=== PATIENT | female | born 1980 | race Asian ===

== ENCOUNTER 2019-01-17 12:20 | Emergency (ER) | payer OTHER, BC ==
[~2019-01-17] VITALS: Ht 160 cm; Wt 54.4 kg
--- NOTE | 2019-01-17 13:01 | ED Upper Extremity ---
General Chief Complaint: Upper Extremity Stated Complaint: LT MIDDLE FINGER INJ Source: patient Exam Limitations: no limitations History of Present Illness Date Seen by Provider: Jan 17, 2019 Time Seen by Provider: 12:30 Initial Comments The patient is a pleasant 38-year-old female who presents for evaluation of an injury to the left middle finger. She states that she accidentally injured it in a van door over the weekend. She is having difficulty flexing the finger due to pain. She denies any other injury to any other part of her hand or elsewhere. She is alert and oriented 4, calm, and appears to be in no distress this time. Pain/Injury Location: left 3rd finger Method of Injury: direct blow Modifying Factors: Improves With Movement (makes it worse) Allergies and Home Medications Allergies Coded Allergies: No Known Drug Allergies (Unverified , 01/17/19) Patient Home Medication List Home Medication List Reviewed: Yes Review of Systems Constitutional: no symptoms reported EENTM: no symptoms reported Respiratory: no symptoms reported Cardiovascular: no symptoms reported Gastrointestinal: no symptoms reported Genitourinary: no symptoms reported : No Musculoskeletal: other (left third finger pain) Skin: no symptoms reported Psychiatric/Neurological: No Symptoms Reported All Other Systems Reviewed Negative Unless Noted: Yes Past Ddypuct-Drvbfz-Padmws Hx Past Med/Social Hx: Reviewed Nursing Past Med/Soc Hx Patient Social History Recent Foreign Travel: No Physical Exam Vital Signs Vital Signs - First Documented 01/17/19 12:24 Temp 37.4 Pulse 86 Resp 20 B/P (MAP) 145/82 (103) Pulse Ox 100 O2 Delivery Room Air Capillary Refill : Height, Weight, BMI Height: '" Weight: lbs. oz. 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 Patient will go home with a prescription for Ultram to be used as needed for pain relief. She has been given Dr. Martinez from orthopedics to follow-up with. The patient expresses verbal understanding and agreement with the plan and is stable for discharge home at this time. Diagnostic Imaging Comments [facility], [facility]. POS [place], [place] POS NAME: NILAY RICH [facility] REC#: [id number] PT STATUS: REG ER : 1980 PHYSICIAN: BÁRBARA BA DO ADMIT DATE: 01/17/19/ER FS Draft POSDate of Exam:01/17/19 FINGER(S) INDICATION: Left middle finger pain. TIME OF EXAM: 12:21 PM FINDINGS: Three views of the left third finger were obtained. There is a fracture involving the base of the distal phalanx of the third finger. There is mild volar displacement of the distal fracture fragment. No significant angulation is seen. No definite intra-articular extension is seen. No other fractures are identified. IMPRESSION: Mildly displaced fracture involving the distal phalanx of the third finger. Dictated on workstation # [id number] Dict: 01/17/19 1254 Trans: 01/17/19 1302 TS [id number] Interpreted by: CHINTAN TAY MD Electronically signed by: Departure Impression Primary Impression: Fracture of distal phalanx of finger of left hand Disposition: 01 HOME, SELF-CARE Condition: Stable Departure-Patient Inst. Decision time for Depature: 13:12 Referrals: BROOKLYNN MARTINEZ MD Patient Instructions: Finger Fracture Add. Discharge Instructions: Follow-up with Dr. Martinez from orthopedics in the next 1-2 days. Return to the emergency Department immediately for new or worsening symptoms. Take the prescribed medicine as directed, as needed for pain. Scripts Tramadol HCl (Ultram) 50 Mg Tablet 50 MG PO Q6H PRN for PAIN-MODERATE (5-7) for 3 Days, #12 TAB Prov: BÁRBARA BA DO 01/17/19 BÁRBARA BA DO Jan 17, 2019 13:01 POS
[2019-01-17] MEDS ORDERED: TRAM-42 PO (13:15)
[2019-01-17 13:46] VITALS: BP 145/82
== END 2019-01-17 13:50 | disposition home or self-care (01) ==
LOC: ER FS 12:22
DX: S62.633A Displaced fracture of distal phalanx of left middle finger, initial encounter for closed fracture (principal); W22.8XXA Striking against or struck by other objects, initial encounter
CPT/HCPCS: 29130; 73140

== ENCOUNTER → 2022-02-23 | Day surgery (SDC) | payer BC ==
[~2022-02-23] VITALS: Ht 160 cm; Wt 55.0 kg
[2022-02-23] VITALS (7 sets, daily range): BP systolic 90–125; BP diastolic 52–82
[~2022-02-23] MED LIST: ACHD5005 PO; CATHETER FLUSH 10 ML SYR IV PRN; HOLD METFORMIN - RECEIVED CONTRAST 20 ML VIAL IV SCH; IOHEXOL 350 MG/ML 100 ML (OMNIPAQUE 350) VIAL IV ONE; KETOROLAC 30 MG/ML VIAL ONE; LIDOCAINE PF 2% 5 ML (XYLOCAINE) VIAL ONE; LIDOCAINE/EPI 1%-1:100,000 (XYLOCAINE) 30ML INJ ONE; LIDOCAINE/EPI 1%-1:100,000 (XYLOCAINE) 30ML ONE; MIDAZOLAM 2 MG/2 ML (VERSED) VIAL ONE; NS 100 ML (IVPB) BAG IV ONE; NS IV 1000 ML 1,000 ML IV SCH; ONDANSETRON 4 MG (ZOFRAN) ORAL DISSOLVE TAB ONE; ONDANSETRON 4 MG (ZOFRAN) ORAL DISSOLVE TAB PO ONE; ONDANSETRON 4 MG/2 ML (SDV) Z0FRAN IVP ONE; ONDANSETRON 4 MG/2 ML (SDV) Z0FRAN IVP PRN; ONDANSETRON 4 MG/2 ML (SDV) Z0FRAN ONE; ROCURONIUM 10 MG/ML 5 ML SYRINGE IV ONE; SEVOFLURANE (ULTANE) 15 ML INHAL SOLN ONE; SUCCINYLCHOLINE INJ 20 MG/1 ML 10 ML VIAL ONE; TRAM-42 PO; ceFAZolin INJECTION 1,000 MG IV ONE; ceFAZolin INJECTION 1,000 MG ONE; fentaNYL INJ 100 MCG/2 ML AMP IVP ONE; fentaNYL INJ 100 MCG/2 ML AMP ONE; morphine INJ 10 MG/ML 1ML (SYR OR VIAL) IVP ONE; morphine INJ 10 MG/ML 1ML (SYR OR VIAL) ONE; proPOfol 200 MG/20 ML (DIPRIVAN) VIAL IV ONE
[2022-02-23 12:47] LABS: BILIRUBIN,URINE NEGATIVE (NEGATIVE); CLARITY,URINE CLOUDY; COLOR,URINE YELLOW; GLUCOSE, URINE (UA) NEGATIVE (NEGATIVE); KETONES,URINE NEGATIVE (NEGATIVE); LEUKOCYTE ESTERASE ,URINE TRACE (NEGATIVE); NITRITE,URINE NEGATIVE (NEGATIVE); PROTEIN,URINE NEGATIVE (NEGATIVE)
[2022-02-23 12:55] LABS: BASOPHILS % (AUTO) 0 % (0-10); EOSINOPHILS # (AUTO) 0.2 10^3/uL (0.0-0.3); EOSINOPHILS % (AUTO) 1 % (0-10); HEMATOCRIT 38 % (35-52); HEMOGLOBIN 12.8 g/dL (11.5-16.0); LYMPHOCYTES # (AUTO) 1.6 10^3/uL (1.0-4.0); LYMPHOCYTES % (AUTO) 12 % (12-44); MEAN CORPUSCULAR HEMOGLOBIN 29 pg (25-34); MEAN CORPUSCULAR HGB CONC 33 g/dL (32-36); MEAN CORPUSCULAR VOLUME 86 fL (80-99); MEAN PLATELET VOLUME 10.3 fL (9.0-12.2); MONOCYTES # (AUTO) 0.8 10^3/uL (0.0-1.0); MONOCYTES % (AUTO) 6 % (0-12); NEUTROPHILS # (AUTO) 11.3 10^3/uL (1.8-7.8); NEUTROPHILS % (AUTO) 81 % (42-75); PLATELET COUNT 300 10^3/uL (130-400); WHITE BLOOD COUNT 13.9 10^3/uL (4.3-11.0)
[2022-02-23 13:05] LABS: BACTERIA,URINE FEW /HPF; RBC,URINE RARE /HPF
[2022-02-23 13:15] LABS: ALANINE AMINOTRANSFERASE 9 U/L (0-55); ALBUMIN 4.7 GM/DL (3.2-4.5); ALKALINE PHOSPHATASE 56 U/L (40-136); BILIRUBIN,TOTAL 0.3 MG/DL (0.1-1.0); BUN/CREATININE RATIO 13; CALCIUM 9.4 MG/DL (8.5-10.1); CARBON DIOXIDE 25 MMOL/L (21-32); CHLORIDE 102 MMOL/L (98-107); CREATININE SERUM 0.69 MG/DL (0.60-1.30); GFR ESTIMATED 113; GLUCOSE 84 MG/DL (70-105); LIPASE 31 U/L (8-78); POTASSIUM 3.4 MMOL/L (3.6-5.0); SODIUM 138 MMOL/L (135-145); TOTAL PROTEIN 8.5 GM/DL (6.4-8.2)
--- NOTE | 2022-02-23 13:57 | Diagnostic Imaging Report ---
PROCEDURE: CT abdomen and pelvis with contrast. TECHNIQUE: Multiple contiguous axial images were obtained through the abdomen and pelvis after administration of intravenous contrast. Auto Exposure Controls were utilized during the CT exam to meet ALARA standards for radiation dose reduction. All CT scans use one or more of the following dose optimizing techniques: automated exposure control, MA and/or KvP adjustment based on patient size and exam type or iterative reconstruction. INDICATION: Right lower quadrant pain COMPARISON: None available FINDINGS: Minimal bibasilar scarring/atelectasis. The liver and spleen are unremarkable. The adrenal glands and pancreas are unremarkable. The gallbladder is unremarkable. The kidneys are unremarkable. No aneurysmal dilatation of the abdominal aorta. The urinary bladder is unremarkable. The uterus and adnexal structures are unremarkable for age. The appendix is significantly dilated measuring 1.2 cm. Severe amount of periappendiceal fat stranding and fat stranding around the cecum is noted. Mural thickening of the cecum is also present. No focal fluid collection, though small amount of free fluid is noted within the pelvis. Lymph nodes within the right lower quadrant are increased in number though not pathologically enlarged. No free air. No acute osseous abnormality. IMPRESSION: Findings concerning for acute appendicitis without evidence of abscess formation or perforation. Associated mural thickening of the tip of the cecum is also present, which may be reactive in nature or related to additional superimposed typhlitis. Dictated by: Dictated on workstation # [id number]
--- NOTE | 2022-02-23 14:46 | ED Abdominal Pain ---
General Chief Complaint: Abdominal/GI Problems Stated Complaint: ABD PAIN Nursing Triage Note: Patient has presented to ER with mid upper abd burning in her stomach for the last 3 days. She has taken tylenol and TUMS for her symptoms. The TUMS helped some for her burning. Source of Information: Patient History of Present Illness Date Seen by Provider: Feb 23, 2022 Time Seen by Provider: 11:59 Initial Comments 41-year-old female patient complaining of intermittent episodes of epigastric pain for the last 2 months that usually happen after eating food. Patient said for the last 3 days she has more episode of epigastric pain as a sharp pain with radiation to her back. Patient also complaining of right lower quadrant pain since this morning as a gradual onset of pain that getting gradually worse and complaining of anorexia blood nausea and vomiting, urinary symptoms, , diarrhea or constipation. Patient rated her right lower quadrant pain as a 6 and epigastric pain as a 8/10. Allergies and Home Medications Allergies Coded Allergies: No Known Drug Allergies (Unverified , 01/17/19) Patient Home Medication List Home Medication List Reviewed: Yes Hydrocodone Bit/Acetaminophen (HYDROcodone/APAP 5 MG/325 MG TAB) 1 Tab Tab, 1 T AB PO Q8H PRN for PAIN-MODERATE (5-7) Prescribed by: CHIQUI CHRISTIANSON on 02/23/22 1707 Tramadol HCl (Ultram) 50 Mg Tablet, 50 MG PO Q6H PRN for PAIN-MODERATE (5-7) Prescribed by: BÁRBARA BA on 01/17/19 1315 Review of Systems Review of Systems Constitutional: see HPI EENTM: See HPI Respiratory: See HPI Cardiovascular: See HPI Gastrointestinal: See HPI Genitourinary: See HPI Musculoskeletal: see HPI Skin: see HPI Psychiatric/Neurological: See HPI Endocrine: See HPI Hematologic/Lymphatic: See HPI All Other Systems Reviewed Negative Unless Noted: Yes Past Mhojple-Tjlbip-Dkpiio Hx Patient Social History Tobacco Use?: No Use of E-Cig and/or Vaping dev: No Substance use?: No Alcohol Use?: Yes Alcohol Frequency: Once in a while Seasonal Allergies Seasonal Allergies: No Past Medical History Surgeries: No Respiratory: No Cardiac: No Neurological: No Genitourinary: No Gastrointestinal: No Musculoskeletal: No Endocrine: No HEENT: No Cancer: No Psychosocial: No Integumentary: No Physical Exam Vital Signs Vital Signs - First Documented 02/23/22 12:00 Temp 36.1 Pulse 97 Resp 16 B/P (MAP) 129/89 (102) Pulse Ox 99 O2 Delivery Room Air Capillary Refill : Height/Weight/BMI Height: '" Weight: lbs. oz. kg; 21.00 BMI Method: General Appearance: WD/WN, mild distress HEENT: PERRL/EOMI, normal ENT inspection, other (Dry oral mucosa) Neck: non-tender, full range of motion, supple, normal inspection Respiratory: chest non-tender, lungs clear, normal breath sounds, no respiratory distress, no accessory muscle use Cardiovascular: regular rate, rhythm, no edema, no gallop, no JVD Gastrointestinal: soft, rebound, tenderness (Right lower quadrant with positive McBurney sign) Extremities: normal range of motion, non-tender Back: normal inspection, no CVA tenderness Neurologic/Psychiatric: no motor/sensory deficits, normal mood/affect Skin: normal color, warm/dry Lymphatic: no adenopathy Progress/Results/Core Measures Results/Orders Lab Results Laboratory Tests Test 02/23/22 12:25 02/23/22 12:26 02/23/22 12:38 Range/Units White Blood Count 13.9 H 4.3-11.0 10^3/uL Red Blood Count 4.48 3.80-5.11 10^6/uL Hemoglobin 12.8 11.5-16.0 g/dL Hematocrit 38 35-52 % Mean Corpuscular Volume 86 80-99 fL Mean Corpuscular Hemoglobin 29 25-34 pg Mean Corpuscular Hemoglobin Concent 33 32-36 g/dL Red Cell Distribution Width 12.9 10.0-14.5 % Platelet Count 300 130-400 10^3/uL Mean Platelet Volume 10.3 9.0-12.2 fL Immature Granulocyte % (Auto) 0 % Neutrophils (%) (Auto) 81 H 42-75 % Lymphocytes (%) (Auto) 12 12-44 % Monocytes (%) (Auto) 6 0-12 % Eosinophils (%) (Auto) 1 0-10 % Basophils (%) (Auto) 0 0-10 % Neutrophils # (Auto) 11.3 H 1.8-7.8 10^3/uL Lymphocytes # (Auto) 1.6 1.0-4.0 10^3/uL Monocytes # (Auto) 0.8 0.0-1.0 10^3/uL Eosinophils # (Auto) 0.2 0.0-0.3 10^3/uL Basophils # (Auto) 0.0 0.0-0.1 10^3/uL Immature Granulocyte # (Auto) 0.1 0.0-0.1 10^3/uL Sodium Level 138 135-145 MMOL/L Potassium Level 3.4 L 3.6-5.0 MMOL/L Chloride Level 102 98-107 MMOL/L Carbon Dioxide Level 25 21-32 MMOL/L Anion Gap 11 5-14 MMOL/L Blood Urea Nitrogen 9 7-18 MG/DL Creatinine 0.69 0.60-1.30 MG/DL Estimat Glomerular Filtration Rate 113 BUN/Creatinine Ratio 13 Glucose Level 84 70-105 MG/DL Calcium Level 9.4 8.5-10.1 MG/DL Corrected Calcium 8.5-10.1 MG/DL Total Bilirubin 0.3 0.1-1.0 MG/DL Aspartate Amino Transf (AST/SGOT) 13 5-34 U/L Alanine Aminotransferase (ALT/SGPT) 9 0-55 U/L Alkaline Phosphatase 56 40-136 U/L Total Protein 8.5 H 6.4-8.2 GM/DL Albumin 4.7 H 3.2-4.5 GM/DL Lipase 31 8-78 U/L Urine Color YELLOW Urine Clarity CLOUDY Urine pH 6.0 5-9 Urine Specific [place] 1.020 1.016-1.022 Urine Protein NEGATIVE NEGATIVE Urine Glucose (UA) NEGATIVE NEGATIVE Urine Ketones NEGATIVE NEGATIVE Urine Nitrite NEGATIVE NEGATIVE Urine Bilirubin NEGATIVE NEGATIVE Urine Urobilinogen 0.2 < = 1.0 MG/DL Urine Leukocyte Esterase TRACE H NEGATIVE Urine RBC (Auto) 1+ H NEGATIVE Urine RBC RARE /HPF Urine WBC 10-25 H /HPF Urine Squamous Epithelial Cells 10-25 H /HPF Urine Crystals NONE /LPF Urine Bacteria FEW H /HPF Urine Casts NONE /LPF Urine Mucus SMALL H /LPF Urine Culture Indicated YES Urine Test NEGATIVE NEGATIVE My Orders Orders - DALLIN ANTHONY MD Comprehensive Metabolic Panel (02/23/22 12:26) Lipase (02/23/22 12:26) Ua Culture If Indicated (02/23/22 12:26) Cbc With Automated Diff (02/23/22 12:26) Ct Abdomen/Pelvis W (02/23/22 12:26) Hcg,Qualitative Urine (02/23/22 12:26) Ns Iv 1000 Ml (Sodium Chloride 0.9%) (02/23/22 12:30) Urine Culture (02/23/22 12:26) Fentanyl Inj (Sublimaze Injection) (02/23/22 13:30) Ondansetron Injection (Zofran Injectio (02/23/22 13:30) Iohexol Injection (Omnipaque 350 Mg/Ml 1 (02/23/22 13:30) Received Contrast (Hold Metformin- Contr (02/23/22 13:30) Sodium Chloride Flush (Catheter Flush Sy (02/23/22 13:30) Ns (Ivpb) (Sodium Chloride 0.9% Ivpb Bag (02/23/22 13:30) Lidocaine/Epi 1% 1:100,000 (Xylocaine/Ep (02/23/22 15:16) Medications Given in ED Current Medications Medications Dose Ordered Sig/Elaine Route Start Time Stop Time Status Last Admin Dose Admin Fentanyl Citrate 50 mcg ONCE ONCE IVP 02/23/22 13:30 02/23/22 13:42 DC 02/23/22 13:36 50 MCG Iohexol 100 ml ONCE ONCE IV 02/23/22 13:30 02/23/22 13:42 DC 02/23/22 13:36 75 ML Ondansetron HCl 4 mg ONCE ONCE IVP 02/23/22 13:30 02/23/22 13:42 DC 02/23/22 13:36 4 MG Sodium Chloride 10 ml NEEDED PRN IV 02/23/22 13:30 02/23/22 13:36 10 ML Sodium Chloride 100 ml ONCE ONCE IV 02/23/22 13:30 02/23/22 13:42 DC 02/23/22 13:36 100 ML Vital Signs/I&O 02/23/22 02/23/22 12:00 14:57 Temp 36.1 36.1 Pulse 97 84 Resp 16 16 B/P (MAP) 129/89 (102) 129/89 Pulse Ox 99 99 O2 Delivery Room Air Room Air Blood Pressure Mean: 102 Progress Progress Note : Progress Note Patient with complaining of chronic intermittent epigastric pain for 2 months that getting worse for 3 days and right lower quadrant pain since this morning. Patient had positive McBurney sign and treated with IV fluid, Zofran, fentanyl. Patient had mild leukocytosis and UTI. Potassium was 3.4 and was not corrected in ER because of n.p.o. condition and no need for IV potassium of mild hypokalemia. CT showed acute appendicitis without perforation. Dr. Christianson on- call surgeon was consulted at 1440 and accepted admission to [facility]. Because of shortage of transfer and request of patient's family, patient was sent by private car with emphasizing on not eating or drinking on her straight way going to hospital. Patient and her informed about test results and plan of care and need for transfer and all questions was addressed. CT Results/Progress Notes CT abdomen pelvis interpreted by radiologist and reviewed by me and showed; NAME: NILAY RICH [facility] REC#: [id number] PT STATUS: REG ER : 1980 PHYSICIAN: DALLIN ANTHONY MD ADMIT DATE: 02/23/22/ER FS Signed Date of Exam:02/23/22 CT ABDOMEN/PELVIS W PROCEDURE: CT abdomen and pelvis with contrast. TECHNIQUE: Multiple contiguous axial images were obtained through the abdomen and pelvis after administration of intravenous contrast. Auto Exposure Controls were utilized during the CT exam to meet ALARA standards for radiation dose reduction. All CT scans use one or more of the following dose optimizing techniques: automated exposure control, MA and/or KvP adjustment based on patient size and exam type or iterative reconstruction. INDICATION: Right lower quadrant pain COMPARISON: None available FINDINGS: Minimal bibasilar scarring/atelectasis. The liver and spleen are unremarkable. The adrenal glands and pancreas are unremarkable. The gallbladder is unremarkable. The kidneys are unremarkable. No aneurysmal dilatation of the abdominal aorta. The urinary bladder is unremarkable. The uterus and adnexal structures are unremarkable for age. The appendix is significantly dilated measuring 1.2 cm. Severe amount of periappendiceal fat stranding and fat stranding around the cecum is noted. Mural thickening of the cecum is also present. No focal fluid collection, though small amount of free fluid is noted within the pelvis. Lymph nodes within the right lower quadrant are increased in number though not pathologically enlarged. No free air. No acute osseous abnormality. IMPRESSION: Findings concerning for acute appendicitis without evidence of abscess formation or perforation. Associated mural thickening of the tip of the cecum is also present, which may be reactive in nature or related to additional superimposed typhlitis. Dictated by: Dictated on workstation # [id number] Dict: 02/23/22 1346 Trans: 02/23/22 1428 [facility] [id number] Interpreted by: EDI PACHECO MD Electronically signed by: EDI PACHECO MD 02/23/22 1428 Departure Communication (Admissions) Time/Spoke to Admitting Phy: 14:40 Dr. Christianson accepted admission Impression Primary Impression: Acute appendicitis Qualified Codes: K35.30 - Acute appendicitis with localized peritonitis, without perforation or gangrene Additional Impressions: Urinary tract infection Qualified Codes: N30.00 - Acute cystitis without hematuria Hypokalemia Disposition: 30 STILL A PATIENT Condition: Improved Admissions Decision to Admit Reason: Admit from ER (General) Decision to Admit/Date: Feb 23, 2022 Time/Decision to Admit Time: 14:41 Transfer Method of Transfer: Private Vehicle (No EMS services available at this time and patient and her family are very reliable for transferring POV, emphasized on keeping n.p.o. and going straight to the [facility]) Departure-Patient Inst. Referrals: MARISSA CARD MD (PCP) Primary Care Physician Scripts Hydrocodone Bit/Acetaminophen (HYDROcodone/APAP 5 MG/325 MG TAB) 1 Tab Tab 1 TAB PO Q8H PRN for PAIN-MODERATE (5-7), #14 TAB Prov: CHIQUI CHRISTIANSON DO 02/23/22 DALLIN ANTHONY MD Feb 23, 2022 14:46
[2022-02-23] MEDS: LACTATED RINGERS 1,000 ML IV PRN ×2 (16:23→17:01)
--- NOTE | 2022-02-23 16:28 | Consultation - Surgery ---
History of Present Illness History of Present Illness Patient Consulted On(reed/time) 02/23/22 16:22 Time Seen by Provider: 16:01 History of Present Illness Surgery asked to consult regarding abdominal pain. HPI: Pt states she has had a "burning pain" around umbilicus for past 3 days, not going away. Rating it 5 out of 10 on a 1-10 scale. Movement and bumps in the car made it worse; nothing really makes it better. She tried to take Tums, which helped a little but not much. Associated with some nausea but no vomiting. Has never had pain like this before. Allergies and Home Medications Allergies Coded Allergies: No Known Drug Allergies (Unverified , 01/17/19) Patient Home Medication List Home Medication List Reviewed: Yes Tramadol HCl (Ultram) 50 Mg Tablet, 50 MG PO Q6H PRN for PAIN-MODERATE (5-7) Prescribed by: BÁRBARA BA on 01/17/19 1315 Past Ggdzutz-Oatbxy-Xzkcff Hx Patient Social History Smoking Status: Never a Smoker 2nd Hand Smoke Exposure: No Recent Hopitalizations: No Alcohol Use?: Yes Seasonal Allergies Seasonal Allergies: No Surgeries History of Surgeries: No Respiratory History of Respiratory Disorde: No Cardiovascular History of Cardiac Disorders: No Neurological History of Neurological Disord: No Reproductive System : No Genitourinary History of Genitourinary Disor: No Gastrointestinal History of Gastrointestinal Di: No Musculoskeletal History of Musculoskeletal Dis: No Endocrine History of Endocrine Disorders: No HEENT History of HEENT Disorders: No Cancer History of Cancer: No Psychosocial History of Psychiatric Problem: No Integumentary History of Skin or Integumenta: No Family Medical History Significant Family History: Hypertension (Mother) Review of Systems-General Constitutional: No chills, No diaphoresis, No weakness EENTM: No blurred vision, No double vision, No mouth swelling, No epistaxis Respiratory: No cough, No dyspnea on exertion, No short of breath Cardiovascular: No chest pain, No edema Gastrointestinal: abdominal pain; No dysphagia, No jaundice; nausea; No vomiting Genitourinary: No dysuria, No frequency, No hematuria Musculoskeletal: No back pain, No joint swelling, No muscle pain Skin: No change in color, No change in hair/nails Psychiatric/Neurological: Denies Anxiety, Denies Depressed, Denies Seizure, Denies Tremors Physical Exam-General Problems Physical Exam Vital Signs Vital Signs - First Documented 02/23/22 12:00 Temp 36.1 Pulse 97 Resp 16 B/P (MAP) 129/89 (102) Pulse Ox 99 O2 Delivery Room Air Capillary Refill : General Appearance: WD/WN, mild distress Eyes: Bilateral Eye PERRL, Bilateral Eye EOMI HEENT: pharynx normal; No scleral icterus (R), No scleral icterus (L) Neck: non-tender, supple Respiratory: lungs clear, normal breath sounds, no respiratory distress, no accessory muscle use Cardiovascular: regular rate, rhythm, no murmur Gastrointestinal: soft, no organomegaly; No distended; guarding (voluntary with deep palpation), tenderness (umbilical and RLQ ), hernia (umbilical) Rectal: deferred Back: no CVA tenderness, no vertebral tenderness Extremities: no pedal edema, no calf tenderness, normal capillary refill Neurologic/Psychiatric: 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, alert, normal mood/affect, oriented x 3 Skin: normal color, warm/dry Lymphatic: no adenopathy (neck, axilla or groin) Data Review Labs Laboratory Tests 02/23/22 12:25: White Blood Count 13.9H, Red Blood Count 4.48, Hemoglobin 12.8, Hematocrit 38, Mean Corpuscular Volume 86, Mean Corpuscular Hemoglobin 29, Mean Corpuscular Hemoglobin Concent 33, Red Cell Distribution Width 12.9, Platelet Count 300, Mean Platelet Volume 10.3, Immature Granulocyte % (Auto) 0, Neutrophils (%) (Auto) 81H, Lymphocytes (%) (Auto) 12, Monocytes (%) (Auto) 6, Eosinophils (%) (Auto) 1, Basophils (%) (Auto) 0, Neutrophils # (Auto) 11.3H, Lymphocytes # (Auto) 1.6, Monocytes # (Auto) 0.8, Eosinophils # (Auto) 0.2, Basophils # (Auto) 0.0, Immature Granulocyte # (Auto) 0.1, Sodium Level 138, Potassium Level 3.4L, Chloride Level 102, Carbon Dioxide Level 25, Anion Gap 11, Blood Urea Nitrogen 9, Creatinine 0.69, Estimat Glomerular Filtration Rate 113, BUN/Creatinine Ratio 13, Glucose Level 84, Calcium Level 9.4, Corrected Calcium , Total Bilirubin 0.3, Aspartate Amino Transf (AST/SGOT) 13, Alanine Aminotransferase (ALT/SGPT) 9, Alkaline Phosphatase 56, Total Protein 8.5H, Albumin 4.7H, Lipase 31 02/23/22 12:26: Urine Color YELLOW, Urine Clarity CLOUDY, Urine pH 6.0, Urine Specific Sebastian 1.020, Urine Protein NEGATIVE, Urine Glucose (UA) NEGATIVE, Urine Ketones NEGATIVE, Urine Nitrite NEGATIVE, Urine Bilirubin NEGATIVE, Urine Urobilinogen 0.2, Urine Leukocyte Esterase TRACEH, Urine RBC (Auto) 1+H, Urine RBC RARE, Urine WBC 10-25H, Urine Squamous Epithelial Cells 10-25H, Urine Crystals NONE, Urine Bacteria FEWH, Urine Casts NONE, Urine Mucus SMALLH, Urine Culture Indicated YES 02/23/22 12:38: Urine Test NEGATIVE Radiology Date of Exam:02/23/22 CT ABDOMEN/PELVIS W PROCEDURE: CT abdomen and pelvis with contrast. TECHNIQUE: Multiple contiguous axial images were obtained through the abdomen and pelvis after administration of intravenous contrast. Auto Exposure Controls were utilized during the CT exam to meet ALARA standards for radiation dose reduction. All CT scans use one or more of the following dose optimizing techniques: automated exposure control, MA and/or KvP adjustment based on patient size and exam type or iterative reconstruction. INDICATION: Right lower quadrant pain COMPARISON: None available FINDINGS: Minimal bibasilar scarring/atelectasis. The liver and spleen are unremarkable. The adrenal glands and pancreas are unremarkable. The gallbladder is unremarkable. The kidneys are unremarkable. No aneurysmal dilatation of the abdominal aorta. The urinary bladder is unremarkable. The uterus and adnexal structures are unremarkable for age. The appendix is significantly dilated measuring 1.2 cm. Severe amount of periappendiceal fat stranding and fat stranding around the cecum is noted. Mural thickening of the cecum is also present. No focal fluid collection, though small amount of free fluid is noted within the pelvis. Lymph nodes within the right lower quadrant are increased in number though not pathologically enlarged. No free air. No acute osseous abnormality. IMPRESSION: Findings concerning for acute appendicitis without evidence of abscess formation or perforation. Associated mural thickening of the tip of the cecum is also present, which may be reactive in nature or related to additional superimposed typhlitis. Dictated by: Dictated on workstation # [id number] Dict: 02/23/22 1346 Trans: 02/23/22 1428 [facility] [phone] Interpreted by: EDI PACHECO MD Electronically signed by: EDI PACHECO MD 02/23/22 1428 Assessment/Plan Assessment/Plan Assessment/Plan Acute Appendicitis Plan NPO, IV fluids, pain control and anti-emetics as needed. Will go to OR for Laparoscopic Appendectomy, possible open; will get consent. I reviewed the CT myself and discsussed the case with ED provider. Spoke to the pt and her . Went over procedure and risks and complications not limited to pain, bleeding, infection, scar, damage to bowel and need for further procedure. All questions answered to their satisfaction. As long as everything goes well, she will most likely go home tonight. CHIQUI CHRISTIANSON DO Feb 23, 2022 16:28
--- NOTE | 2022-02-23 17:06 | Progress Note-Post Operative ---
Post-Operative Progess Note Surgeon (s)/Pmp Certified Project Manager (s) Surgeon CHIQUI CHRISTIANSON DO Pmp Certified Project Manager: none Pre-Operative Diagnosis Acute appy Post-Operative Diagnosis same Procedure & Operative Findings Date of Procedure 02/23/22 Procedure Performed/Findings PROCEDURE: Laparoscopic appendectomy. COMPLICATIONS: None. INDICATIONS: The patient is a 41 year old female who has been having right lower quadrant abdominal pain. Patient's exam consistent with appendicitis. I discussed risk and benefits of laparoscopic appendectomy and all indicated procedures with the possibility being a normal appendix. The patient understands the risks and benefits and wishes to proceed. Consent was signed on the chart. DESCRIPTION OF PROCEDURE: The patient was taken to the operating suite, prepped and draped in a sterile fashion. Timeout was performed. Local anesthetic was infiltrated just above the umbilicus and 11-blade scalpel was used to make a skin incision. Cautery was used to dissect down to the fascia and scored. Kochers were used to grasp and elevate it and the abdomen was then entered. A 0 Vicryl was placed in a qmecic-ey-kwiia fashion for closure at the end of the case. The balloon trocar was inserted into the abdomen and pneumoperitoneum was achieved. Under direct visualization of the laparoscope, a 5 mm trocar was placed in the suprapubic region and a 5 mm trocar was placed in the left lower quadrant. Appendix was located, it was inflamed and enlarged. Dissected the mesoappendix with the Ligasure in a stepwise fashion until we were at the base of the appendix. Identified the cecum and the terminal ileum; was well away from them. Once at the base an Endo-SARWAT 2.5 stapler was then fired across the base of the appendix. It was then placed in an Endobag and removed through the 12 mm trocar site. The abdomen was then irrigated and sucti oned. No other pathology noted. The abdomen was then desufflated and the trocars were removed. The 0 Vicryl placed at the beginning of the case was then tied closing the 12 mm fascial defect. The skin was then closed using 4-0 Monocryl in a subcutic ular fashion. The abdomen was then washed and dried and Skin Affix was placed over the incisions. The patient tolerated the procedure well without any complications and was taken to the recovery room in stable condition. Anesthesia Type GET Estimated Blood Loss Estimated blood loss (mL): scant Specimens/Packing Specimens Removed appendix CHIQUI CHRISTIANSON DO Feb 23, 2022 17:06
--- NOTE | 2022-02-23 17:08 | Discharge Inst-Surgical ---
Discharge Inst-Surgical Depart Medication/Instructions New, Converted or Re-Newed RX: Transmitted to Pharmacy Patient Instructions Follow up Appt: Make appointment for 1 week. [phone] Instructions: No lifting greater than 20 pounds. No strenuous activity. May shower in 24 hours, no tub bath or soaking. Use incentive spirometer at home as directed. No Smoking Skin/Wound Care: May remove bandages in am. You need to leave the Dermabond on incision it will fall off on it's own. Symptoms to Report: Appetite Changes, Extremity Discoloration, Numbness/Tingling, Swelling Increased, Bleeding Excessive, Eyesight Changes, Pain Increased, Urine Color Change, Constipation(Persistent), Fever over 101 degree F, Pain/Pressure in chest, Urinating Difficulty, Cough Up/Vomit Blood, Heart Beat Irreg/Pounding, Pain/Pressure in jaw, Cramps in feet or legs, Lightheadedness, Pain/Pressure in shoulder, Diarrhea(Persistent), Memory Changes Suddenly, Questions/Concerns, Weight gain consecutive days, Dizziness/Fainting, Nausea/Vomiting, Shortness of Breath, Weight gain over 2 pounds If questions or concerns contact your physician Or seek help at emergency department. Activity Activity as Tolerated: Yes Activity Instructions: Avoid Stress to Incision Driving Instructions: No Driving/Refer to Dr. Gutierrez Discharge Diet: No Restrictions Diet After 24 Hours: Clear Liquid if Nauseous If Any Problems/Questions/Issu: Contact Your Physician, Go to Emergency Room Skin/Wound Care Infection Signs and Symptoms: Increased Redness, Foul Odor of Wound, Increased Drainage, Skin Itchy or Has a Rash, Increased Swelling, Temperature Above 101 F Wound Care Comment: heating pad to shoulder or neck tonight for pain Bathing Instructions: Shower Stitches/[place]/Dermabond Dis: Dermabond Ice Pack: Ice On and Off Site CHIQUI CHRISTIANSON DO Feb 23, 2022 17:08
--- NOTE | 2022-02-23 17:30 | Anesthesia-General Post-Op ---
General Patient Condition Mental Status/LOC: Same as Preop Cardiovascular: Satisfactory Nausea/Vomiting: Absent Respiratory: Satisfactory Pain: Controlled Complications: Absent Post Op Complications Complications None Follow Up Care/Instructions Patient Instructions None needed. Anesthesia/Patient Condition Patient Condition Patient is doing well, no complaints, stable vital signs, no apparent adverse anesthesia problems. No complications reported per nursing. NAEEM HOGAN CRNA Feb 23, 2022 17:30
== END | disposition home or self-care (01) ==
LOC: EDUNIT# 11:48 → ER FS 11:51 → SDC 15:47
PROVIDERS: ATTEND Surgery
DX: K35.80 Unspecified acute appendicitis (principal)
CPT/HCPCS: 36415; 74177; 80053; 81000; 83690; 84703; 85025; 87088; 88304; 94664; 94760; Q9967